=== PATIENT | female | born 1960 | race Caucasian/White ===

== ENCOUNTER → 2020-05-29 | Outpatient (CLI) | payer BC | LOC: GMA MATASK 14:30 | PROVIDERS: ATTEND Family Medicine | DX: R10.84 Generalized abdominal pain (principal) ==

== ENCOUNTER → 2020-08-29 | Outpatient (CLI) | payer BC | LOC: GMA MATASK 16:49 | PROVIDERS: ATTEND Family Medicine | DX: Z11.3 Encounter for screening for infections with a predominantly sexual mode of transmission (principal) ==